=== PATIENT | male | born 1945 | race Caucasian/White ===

== ENCOUNTER → 2016-04-29 | Day surgery (SDC) | payer MEDICARE ==
[~2016-04-29] MED LIST: ACETAMINOPHEN 1000 MG/100 ML VIAL IV ONE; AMLO10 PO; BUPIVACAINE LIPOSOME PF 1.3% 20 ML VIAL ONE; CLOP75 PO; FENO1TAB76 PO; KETOROLAC TROMETHAMINE 30 MG/ML (IVP) VIAL IV PUSH ONE; LACTATED RINGER'S 1000 ML INJ 1,000 ML ONE; METO25CR PO; MIDAZOLAM HCL 2 MG/2 ML VIAL ONE; ONDANSETRON HCL 4 MG/2 ML VIAL IV PUSH ONE; PROPOFOL 100 MG/10 ML INJ IV ONE; PROT40TA PO; ZOCO80TA PO; ceFAZolin 2 GM PREMIX 50 ML ONE; oxyCODONE/ACETAMINOPHEN 5 MG/325 MG TAB ONE
--- NOTE | 2016-05-03 17:57 | MP ---
cc: GENARO PATEL M.D. DATE OF SURGERY: 04/29/2016 PREOPERATIVE DIAGNOSIS: Recurrent right inguinal hernia. POSTOPERATIVE DIAGNOSIS Recurrent right inguinal hernia. PROCEDURE Repair of recurrent right inguinal hernia with PerFix plug mesh. SURGEON Genaro Patel MD. ANESTHESIA Local with MAC. OPERATIVE FINDINGS The procedure. Per colon the patient was brought to the operating room after satisfactory sedation by Anesthesia the right groin was prepped and draped in the usual sterile fashion. Exparel was used to infiltrate the skin for local anesthesia. A transverse right inguinal incision was made carried out sharply through the subcutaneous tissue with cautery being is hemostasis. Incision was deepened in the external oblique fascia where upon the hernia sac was identified protruding through the midportion of the external oblique. The hernia sac was seen to be protruding through the external oblique fascia and it was circumferentially incised to allow reduction into the properitoneal space which was accomplished without problem. The external oblique fascia was then opened transversely over to the internal ring. There was a small to moderate defect where the hernia sac and protruded. Due to the positive good tissue and the fact that a previous repair medially was intact. It was decided to proceed with placement of a small PerFix plug. The plug was seated within the defect and secured between the internal oblique muscle and the shelving edge of the inguinal ligament using interrupted 0 Prolene sutures. The hernia defect was then completely covered and no other weak areas were identified at that point. No other mesh was used as there was a positive tissue to cover. Hemostasis was checked for and found to be satisfactory. The area was infiltrated with further Exparel and the subcutaneous tissue then closed with interrupted 3-0 Vicryl sutures. The skin was closed with interrupted 4-0 Monocryl subcuticular stitch. Steri-Strips were applied and the patient then taken from the operating room, in satisfactory condition, having tolerated procedure without problem. Estimated blood loss was less than 5 ml's. The instrument, sponge, needle counts reported as being correct x2 at the end of procedure. MD PRIMITIVO Galvez/landen /9:20 AM /5:52 PM
== END | disposition home or self-care (01) ==
LOC: ESDC 06:46
PROVIDERS: ATTEND Surgery
DX: K40.91 Unilateral inguinal hernia, without obstruction or gangrene, recurrent (principal)
CPT/HCPCS: 00830; 49520; C1781; C9290; J0131; J0690; J1885; J2250; J2405; J3010; J7120

== ENCOUNTER 2016-11-21 13:21 | Emergency (ER) | payer MEDICARE ==
[~2016-11-21] VITALS: Ht 172.7 cm; Wt 84.6 kg
[~2016-11-21 13:21] MED LIST changes: -ACETAMINOPHEN 1000 MG/100 ML VIAL IV ONE; -BUPIVACAINE LIPOSOME PF 1.3% 20 ML VIAL ONE; -KETOROLAC TROMETHAMINE 30 MG/ML (IVP) VIAL IV PUSH ONE; -LACTATED RINGER'S 1000 ML INJ 1,000 ML ONE; -MIDAZOLAM HCL 2 MG/2 ML VIAL ONE; -ONDANSETRON HCL 4 MG/2 ML VIAL IV PUSH ONE; -PROPOFOL 100 MG/10 ML INJ IV ONE; -ceFAZolin 2 GM PREMIX 50 ML ONE; -oxyCODONE/ACETAMINOPHEN 5 MG/325 MG TAB ONE
[2016-11-21 13:41] VITALS: BP 141/66; PULSE 68; RESP 18; TEMP 98; O2SAT 97
[2016-11-21] MEDS ORDERED: AMLO10TA2 PO (14:01)
[2016-11-21] MEDS ORDERED: FENO50TA PO (14:01)
[2016-11-21] MEDS ORDERED: PLAV75TA29 PO (14:01)
[2016-11-21] MEDS ORDERED: METO25TA3 PO (14:01)
--- NOTE | 2016-11-21 14:21 | PD ---
HPI Chief Complaint: Musculoskeletal Complaint Time Seen by Provider: 14:15 Travel History International Travel<30 days: No Contact w/Intl Traveler<30days: No Traveled to known affect area: No History of Present Illness HPI 71-year-old male presents to emergency department for evaluation of left lateral ankle pain and heel pain 1 day. Patient denies specific injury. He reports she possibly twisted the ankle. Reports pain is constant, worse with weightbearing and range of motion of the ankle. Relieved with rest. Severity 4 /10. He denies numbness/tingling/weakness of the extremity. PFSH Past Medical History Arthritis: No Asthma: No Autoimmune Disease: No Heart Rhythm Problems: Yes Cancer: No Cardiovascular Problems: Yes (PACER, STENTS X2) High Cholesterol: No Chest Pain: Yes Congestive Heart Failure: No COPD: No Cerebrovascular Accident: No Diabetes: No Diminished Hearing: No Gastrointestinal Disorders: No GERD: No Glaucoma: No Headaches: Yes Hepatitis: No Hiatal Hernia: Yes Hypertension: Yes Kidney Stones: No Musculoskeletal: No Neurologic: No Reproductive: No Respiratory: Yes (EMPHYSEMA) Myocardial Infarction: No Renal Failure: No Seizures: No Sleep Apnea: No Thyroid Disease: No Ulcer: No Past Surgical History Abdominal Surgery: Yes (UMBILLICAL HERNIA) AICD: No Cardiac Surgery: Yes (ANGIOPLASTY X 5; HEART STENT X 2,PACEMAKER) Ear Surgery: No Endocrine Surgery: No Eye Surgery: No Genitourinary Surgery: Yes (RIGHT INGUINAL HERNIA) Gynecologic Surgery: No Neurologic Surgery: No Oral Surgery: No Pacemaker: Yes (ST BHARATI) Thoracic Surgery: No Other Surgery: Yes Social History Alcohol Use: Yes (6-8 BEERS DAILY ) Tobacco Use: Yes (CIGARS) Substance Use: No Allergies-Medications (Allergen,Severity, Reaction): Coded Allergies: No Known Allergies (Verified , 11/21/16) Reported Meds & Prescriptions Reported Meds & Active Scripts Active Reported Metoprolol Tartrate 25 Mg Tab 25 Mg PO DAILY Tricor (Fenofibrate) 145 Mg Tab 145 Mg PO DAILY Takw with food. Plavix (Clopidogrel Bisulfate) 75 Mg Tab 75 Mg PO DAILY Amlodipine (Amlodipine Besylate) 10 Mg Tab 10 Mg PO DAILY Review of Systems Except as stated in HPI: all other systems reviewed are Neg General / Constitutional: No: Fever Eyes: No: Visual changes HENT: No: Headaches Cardiovascular: No: Chest Pain or Discomfort Respiratory: No: Shortness of Breath Gastrointestinal: No: Abdominal Pain Genitourinary: No: Dysuria Physical Exam Narrative GENERAL: Well-nourished, well-developed patient. SKIN: Focused skin assessment warm/dry. HEAD: Normocephalic. CARDIOVASCULAR: Regular rate and rhythm without murmurs, gallops, or rubs. RESPIRATORY: Breath sounds equal bilaterally. No accessory muscle use. GASTROINTESTINAL: Abdomen soft, non-tender, nondistended. MUSCULOSKELETAL: No cyanosis, or edema. Left lower extremity: TTP and mild swelling to lateral malleolus. Patient reports pain but is nontender and the heel. Child is neurovascular intact. 2+ distal pulses. Brisk cap refill. Data Data Last Documented VS Vital Signs Date Time Temp Pulse Resp B/P Pulse Ox O2 Delivery O2 Flow Rate FiO2 11/21/16 13:41 98.0 68 18 141/66 97 Orders Ankle, Complete (Tox6hum) (11/21/16 ) Gautam Bandage (11/21/16 14:48) Ketorolac Inj (Toradol Inj) (11/21/16 15:00) MDM Medical Decision Making Medical Screen Exam Complete: Yes Emergency Medical Condition: Yes Differential Diagnosis Ankle sprain versus fracture, Plantar fasciitis Narrative Course 71-year-old male with chief complaint of left lateral ankle pain status post minor twisting injury. On exam patient has mild amount of swelling and tenderness to the lateral malleolus. Patient reports some pain within the heel but is nontender. X-ray pending X-ray of the left ankle is negative for fracture. Patient be treated for ankle sprain. Gautam wrap applied. Advised to rest, ice, elevate the extremity. Take NSAIDs as needed for pain. Patient verbalizes understanding and agrees to plan. Diagnosis Primary Impression: Ankle sprain Qualified Code: S93.402A - Sprain of left ankle, unspecified ligament, initial encounter Referrals: Primary Care Physician Additional Instructions: Rest, ice, elevate the extremity. Review the Gautam wrap for support. Follow-up with her primary doctor for recheck. Return to emergency department if he developed new or worsening symptoms. Disposition: 01 DISCHARGE HOME Condition: Stable Bernadine Peterson Nov 21, 2016 14:21 Bernadine Peterson Nov 21, 2016 14:21
--- NOTE | 2016-11-21 14:41 | RADRPT ---
EXAM DATE/TIME: 11/21/2016 14:18 [facility] COMPARISON: CHEST SINGLE AP, March 08, 2014, 14:03. INDICATIONS : Complains of pain and swelling of left ankle, no known trauma. MEDICAL HISTORY : None. SURGICAL HISTORY : None. ENCOUNTER: Initial ACUITY: 1 month PAIN SCORE: 10/10 LOCATION: Left ankle FINDINGS: Three view exam was performed of the left ankle. The bony structures are in normal alignment. No ev idence of fracture, dislocation, or soft tissue swelling. The ankle mortise is intact. No radiopaqu e foreign bodies are seen. Bony mineralization is normal. CONCLUSION: 1. Negative examination. Hitesh Hernandez MD on November 21, 2016 at 14:39 Board Certified Radiologist. This report was verified electronically.
[2016-11-21 14:55] VITALS: BP 136/72
[2016-11-21] MEDS ORDERED: KETOROLAC TROMETHAMINE 60 MG/2 ML (IM) VIAL IM ONE (15:00)
== END 2016-11-21 15:14 | disposition home or self-care (01) ==
LOC: PHEFT 13:21
DX: S93.402A Sprain of unspecified ligament of left ankle, initial encounter (principal); X58.XXXA Exposure to other specified factors, initial encounter
CPT/HCPCS: 73610; 96372; 99284; J1885